=== PATIENT | male | born 1940 | race Caucasian/White ===

== ENCOUNTER 2025-03-09 08:27 | Day surgery (SDC) | payer MEDICARE, BC, SELFPAY ==
[2025-03-09] VITALS (23 sets, daily range): BP systolic 96–128; BP diastolic 54–75; PULSE 50–79; RESP 14–18; TEMP 35.6–36.9; O2SAT 91–98; BMI 27.8
[2025-03-09] MEDS: CELECOXIB 200 MG CAPSULE PO ×2 (09:00→20:43)
[2025-03-09] MEDS: ACETAMINOPHEN 500 MG TABLET 1000 MG PO ×3 (09:00→22:51)
[2025-03-09] MEDS: LACTATED RINGERS 1000 ML 1,000 ML 100 ML IV ×2 (09:15→11:40)
[2025-03-09] MEDS: SODIUM CHLORIDE 0.9 % (FLUSH) 10 ML SYRINGE IVF (09:15)
[2025-03-09] MEDS: fentaNYL 100 MCG/2 ML inj IVP (09:49)
[2025-03-09] MEDS: MIDAZOLAM HCL 1 MG/ML inj IVP (09:49)
--- NOTE | 2025-03-09 09:50 | SUR.PREOP ---
TIME?OUT:?48 PT/RN/MDA?VERIFICATION?OF?SURGICAL?SITE,?PROCEDURE,?AND?CONSENT OBTAINED?PRIOR?TO?INVASIVE?PROCEDURE.
--- NOTE | 2025-03-09 09:50 | SUR.OPER ---
PATIENT QUESTIONS ANSWERED SATISFACTORILY PREOPERATIVELY.? PATIENT BROUGHT TO OR #2 PER CART AFTER ADMINISTRATION OF A BLOCK.? Patient positioned supine on OR #2 bed.? The perioperative?team supported arms bilaterally on arm boards.? Final approval of positioning by surgeon.?
[2025-03-09] MEDS: CEFAZOLIN 1 GM inj IVP (10:16)
[2025-03-09] MEDS: TRANEXAMIC ACID 100 MG/ML INJ 1000 MG IV (10:17)
--- NOTE | 2025-03-09 11:29 | CRLHL7_ITS ---
For Patients: As a result of the Cures Act, medical imaging exams and procedure reports are released immediately into your electronic medical record. You may view this report before your referring provider. If you have questions, please contact your health care provider. Indication: Postop Technique: Two views left knee Findings/Impression: Hardware from a left total knee arthroplasty is in satisfactory position. Bone alignment is normal. No sign of acute fracture. Postop changes are within normal limits. Dictated by Michael Simpson MD @ 03/09/2025 3:39:05 PM (Electronically Signed)
--- NOTE | 2025-03-09 11:33 | P.ORPRC_ITS ---
Procedure Note Date of procedure: 03/09/25 Procedure: PREOPERATIVE DIAGNOSIS: Left knee osteoarthritis POSTOPERATIVE DIAGNOSIS: Left knee osteoarthritis NAME OF OPERATION: Left total knee arthroplasty SURGEON: Tremayne Kraft MD LINE ASSEMBLY UTILITY WORKER: Lesvia Corrigan PA-C ANESTHESIA: Spinal ESTIMATED BLOOD LOSS: 0 mL COMPLICATIONS: None SPECIMENS: None DRAINS: None PREOPERATIVE ANTIBIOTICS: Ancef 2 grams IMPLANTS: 1. J&J Attune # 7 posterior stabilized femur 2. #6 fixed-bearing tibia 3. # 7 posterior stabilized, 5 mm fixed-bearing polyethylene 4. 38 patella INDICATIONS: The patient is a 85-year-old with a longstanding history of severe, unrelenting left knee pain secondary to end-stage (grade IV) left knee osteoarthritis. Despite appropriate nonoperative management, including activity modification, anti-inflammatories, emwa-zyt-cxeeowo pain medication, bracing, physical therapy, and injections they continue to have pain and disability. Operative intervention was offered. The risks, benefits and expected outcomes were discussed in detail. These included but were not limited to: Infection, bleeding, injury to blood vessel or nerve, venous thromboembolism. All questions were answered to their satisfaction. Use of an animal care assistant was necessary throughout the case for patient positioning and safety, soft tissue retraction, and closure. PROCEDURE: Spinal anesthesia was administered. The patient was placed supine on the operating table. The animal care assistant made sure the patient was positioned appropriately. The lower extremity was prepped and draped in the usual sterile fashion. The limb was exsanguinated with the Paulo bandage. The pneumatic tourniquet was inflated to 300 mmHg. A standard anterior incision was made with the knee in flexion. Subcutaneous dissection was sharply taken through fascial layer #1. Full-thickness medial and lateral flaps were elevated. The animal care assistant retracted the soft tissues and protected them throughout the case. A standard subvastus approach was made. The patella was subluxed. The infrapatellar fat pad was debrided. The menisci and cruciate ligaments were sharply d?brided. Marginal osteophytes were d?brided with the rongeur. The drill was used to penetrate the femoral canal. The canal was aspirated and irrigated with pulse lavage. The intramedullary femoral guide was placed for a 5-degree valgus cut, removing 10 mm off the distal femur. The saw was used to make the cut. Whitesides line and the trans epicondylar axis were marked. The femoral sizing guide was pinned onto the distal femur. Three degrees of external rotation nicely parallels the transepicondylar axis. Pins were placed for posterior referencing. The four-in-one cutting guide was pinned onto the distal femur. The anterior, posterior, and chamfer cuts were made. The animal care assistant protected the collateral ligaments. The box cutting guide was pinned. The box cuts were made. The boxed trial was placed and was an excellent fit. Drill holes for the lugs were made. Attention was then turned to the proximal tibia. The extramedullary tibial guide was placed for a neutral varus/valgus cut with 5 degrees of posterior slope, removing 0 mm based off the medial tibial surface. The animal care assistant protected the collateral ligaments and the neurovascular bundle. The saw was used to make the cut. Trial components were placed. The knee was nicely balanced in both flexion and extension. The trial components were removed. The tray was placed in appropriate rotation, parallel to our tibial cutting pins. It was pinned by the animal care assistant and the drill and the punch were used. The tray was removed. The punch was used again. We placed a bone plug in the femoral canal. Attention was then turned to the patella. [place] patellar thickness was 24 mm. The lobster claw resection guide was used with the 9.5 mm regina. The saw was used to make the cut. Drill holes were made by the animal care assistant. The trial was placed and was an excellent fit. Cancellous surfaces were irrigated with pulse lavage and thoroughly dried by the animal care assistant. We cemented the tibial component, then the femoral component. We impacted the 5 mm polyethylene onto the tibial tray. The knee was brought into full extension. We then cemented the patellar component. Excessive cement was removed. The cement was allowed to harden. The knee was taken through a range of motion and was found to be nicely balanced in both flexion and extension. The patella tracks centrally. The animal care assistant did a three minute dilute Betadine solution soak. The animal care assistant irrigated the wound with 3 liters of normal saline via pulse lavage. The animal care assistant reapproximated the extensor mechanism with #1 Vicryl in an interrupted [id number] fashion. The animal care assistant then ran the extensor mechanism with a #1 PDO Stratafix. The animal care assistant closed the subcutaneous tissues with a 3-0 Stratafix and the skin with a running 3-0 Stratafix in a subcuticular fashion. Glue was used to seal the skin. The animal care assistant placed a dry dressing. Sponge and needle counts were correct x2. The patient tolerated the procedure well. There were no apparent complications. They were carefully transferred to the hospital bed and taken to the postanesthesia care unit in satisfactory condition. PLAN: The patient will be mobilized with physical therapy. Aspirin will be used for DVT prophylaxis. They will be discharged to home once medically appropriate.
--- NOTE | 2025-03-09 12:13 | W.PM.NB ---
Nerve Block Nerve Block Time Seen by Provider: 09:50 Date Seen: 03/09/25 Type of block requested by surgeon for post-operative analgesia: adductor canal Side: left Time out performed: Yes Verification of patient name: Yes Verification of date of : Yes Site marking: site marked Name of person performing procedure: Frederick Continuous monitoring Was continuous monitoring of O2 sat, B/P, bridge crew member, recorded every 15 minutes?: Yes Procedure Checklist: sterile prep, needles and gloves Ultrasound guided. Images saved: Yes Medications given in 5ml increments after negative aspiration: Marcaine %: 0.25 mL: 15 Needle gauge: 20 Precedex (mcg): 25 Patient tolerated procedure well: Yes Block Charges Block Charge (with Pro Fee): Femoral Nerve Use of Ultrasound Machine for Block: Yes- US Guidance/pain block
--- NOTE | 2025-03-09 12:14 | W.PM.NB ---
Nerve Block Nerve Block Time Seen by Provider: 09:50 Date Seen: 03/09/25 Type of block requested by surgeon for post-operative analgesia: geniculars Side: left Time out performed: Yes Verification of patient name: Yes Verification of date of : Yes Site marking: site marked Name of person performing procedure: Frederick Continuous monitoring Was continuous monitoring of O2 sat, B/P, engine monitor, recorded every 15 minutes?: Yes Procedure Checklist: sterile prep, needles and gloves Ultrasound guided. Images saved: Yes Medications given in 5ml increments after negative aspiration: Marcaine %: 0.25 mL: 9 Needle gauge: 25 Patient tolerated procedure well: Yes Block Charges Block Charge (with Pro Fee): Genicular Nerve Block
--- NOTE | 2025-03-09 12:15 | P.ANES_ITS ---
Anesthesia Charges Start Date/Time Anesthesia Start Date: 03/09/25 Anesthesia Start Time: 10:04 Stop Date/Time Anesthesia Stop Date: 03/09/25 Anesthesia Stop Time: 12:14 Summary Extremes of Age - Over 70 or under 1: MDA Coding CPT Codes CPT Codes: ANESTH KNEE ARTHROPLASTY - 65918 ([id number]) P3 - PATIENT W/SEVERE SYS DISEASE, QK - INFORMATION SECURITY ENGINEER 2-4 CNCRNT ANES PROC, QX - SENIOR ENVIRONMENTAL ENGINEER SVC W/ MD MED DIRECTION Additional Codes: Summary - Extremes of Age - Over 70 or under 1: MDA ([id number])
--- NOTE | 2025-03-09 12:15 | P.ANES_ITS ---
Anesthesia Charges Start Date/Time Anesthesia Start Date: 03/09/25 Anesthesia Start Time: 10:04 Stop Date/Time Anesthesia Stop Date: 03/09/25 Anesthesia Stop Time: 12:14 Summary Extremes of Age - Over 70 or under 1: CONSUMER BANKER Coding CPT Codes CPT Codes: ANESTH KNEE ARTHROPLASTY - 51028 ([id number]) QX - CONSUMER BANKER SVC W/ MD MED DIRECTION, QK - SENIOR FINANCIAL 2-4 CNCRNT ANES PROC, P2 - PATIENT W/MILD SYST DISEASE Additional Codes: Summary - Extremes of Age - Over 70 or under 1: CONSUMER BANKER ([id number])
--- NOTE | 2025-03-09 12:15 | W.ANESCHARGE ---
Anesthesia Charges Start Date/Time Anesthesia Start Date: 03/09/25 Anesthesia Start Time: 10:04 Stop Date/Time Anesthesia Stop Date: 03/09/25 Anesthesia Stop Time: 12:14 Summary Extremes of Age - Over 70 or under 1: SQUEEZER OPERATOR Coding CPT Codes CPT Codes: ANESTH KNEE ARTHROPLASTY - 99930 ([id number]) QX - SQUEEZER OPERATOR SVC W/ MD MED DIRECTION, QK - MARKET SUPERINTENDENT 2-4 CNCRNT ANES PROC, P2 - PATIENT W/MILD SYST DISEASE Additional Codes: Summary - Extremes of Age - Over 70 or under 1: SQUEEZER OPERATOR ([id number])
--- NOTE | 2025-03-09 12:15 | W.ANESCHARGE ---
Anesthesia Charges Start Date/Time Anesthesia Start Date: 03/09/25 Anesthesia Start Time: 10:04 Stop Date/Time Anesthesia Stop Date: 03/09/25 Anesthesia Stop Time: 12:14 Summary Extremes of Age - Over 70 or under 1: MDA Coding CPT Codes CPT Codes: ANESTH KNEE ARTHROPLASTY - 37694 ([id number]) P3 - PATIENT W/SEVERE SYS DISEASE, QK - INDUSTRIAL MANUFACTURING TECHNICIAN 2-4 CNCRNT ANES PROC, QX - CASH PROCESSOR SVC W/ MD MED DIRECTION Additional Codes: Summary - Extremes of Age - Over 70 or under 1: MDA ([id number])
[2025-03-09] MEDS: HYDROmorphone 0.5 mg/0.5 ml inj IVP ×3 (15:38→22:51)
[2025-03-09] MEDS: CEFAZOLIN 2 GM in 0.9 % SODIUM CHLORIDE Mini-bag 100 ML IVPB ×2 (15:38→22:52)
--- NOTE | 2025-03-09 15:41 | PM.IMCN1 ---
Date of Consult Patient: Other Consult date: 03/09/25 Primary Care Provider: Yobani Murray PA-C Consult Narrative Reason for consult: Medical management of comorbidities Narrative: Sekou Tobias is a 85 year old male who presented to the hospital today for an elective L TKA with Dr. Kraft of Orthopedic Surgery. There were no surgical or anesthetic complications noted during procedure. Patient's H&P reviewed, PCP is Yobani Murray at [facility]. Past medical history significant for: Moderate persistent asthma, essential hypertension, BPH, remote history of right lung lobectomy, melanoma. History of blood clots: No Postoperative plan: Home with Patient is comfortable in bed without concerns for hospitalist team this afternoon. Review of Systems Status of ROS: Reports: 10 or more systems reviewed and unremarkable except as noted in History and below [facility] Medical History (Updated 03/09/25 @ 15:48 by Sandrine Hawley MD) Asthma ?J45.909 - Unspecified asthma, uncomplicated (ICD-10) High cholesterol ?E78.00 - Pure hypercholesterolemia, unspecified (ICD-10) Hypertension ?I10 - Essential (primary) hypertension (ICD-10) Coronary artery disease ?I25.10 - Atherosclerotic heart disease of [place] coronary artery without angina pectoris (ICD-10) H/O left bundle branch block ?Z86.79 - Personal history of other diseases of the circulatory system (ICD-10) Melanoma ?C43.9 - Malignant melanoma of skin, unspecified (ICD-10) Skin cancer ?C44.90 - Unspecified malignant neoplasm of skin, unspecified (ICD-10) COPD (chronic obstructive pulmonary disease) ?J44.9 - Chronic obstructive pulmonary disease, unspecified (ICD-10) Surgical History (Updated 03/09/25 @ 15:48 by Sandrine Hawley MD) Status post left knee replacement ?Z96.652 - Presence of left artificial knee joint (ICD-10) H/O total ankle replacement ?Z96.669 - Presence of unspecified artificial ankle joint (ICD-10) Hx of cataract surgery ?Z98.49 - Cataract extraction status, unspecified eye (ICD-10) S/P thoracotomy ?Z98.890 - Other specified postprocedural states (ICD-10) H/O hernia repair ?Z98.890 - Other specified postprocedural states (ICD-10) ?Z87.19 - Personal history of other diseases of the digestive system (ICD-10) Family History Other Colon cancer Lung cancer Stroke Social History (Updated 11/02/24 @ 13:03 by Judy Collins ~ [facility], [facility]) Narrative: -Charis former smoker (1963) What is your current living situation?: I presently have a place to live Problems where you live: no known problems In the past 12 months, utilities in danger of being shut off: no In past 12 months, lack of transportation kept you from medical appts, meetings, work, or getting things needed for daily living: no In the past 12 mos, have been you worried that your food would run out before you had money to buy more?: never true In the past 12 mos, the food you bought just didn't last and you didn't have money to buy more?: never true Highest level of school completed/degree received: high school graduate Smoking Status: Never smoker Do you use any of these nicotine containing products: None Second hand tobacco smoke exposure: No How often do you have a drink containing alcohol: 2-4 times a month Alcohol type: beer How many standard drinks containing alcohol do you have on a typical day: 1 or 2 How often do you have six or more drinks on one occasion: Never AUDIT-C Alcohol total score: 2 Non-prescribed substance use: denies use Caffeine: Yes How often does anyone, including family, friends and others, physically hurt you: never How often does anyone, including family, friends and others, insult or talk down to you: never How often does anyone, including family, friends and others, threaten you with harm: never How often does anyone, including family, friends and others, scream or curse at you: never service: Yes Meds Home Medications and Allergies Home Medications ?Medication ?Instructions ?Recorded ?Confirmed ?Type albuterol sulfate 90 mcg/actuation 2 puff inhalation Q4H PRN 02/20/23 03/09/25 History aerosol inhaler allopurinol 300 mg tablet 300 mg PO DAILY 02/20/23 03/09/25 History aspirin 81 mg tablet,delayed 81 mg PO DAILY 02/20/23 03/09/25 History release Held on 03/09/25. Instructions: Resume on 04/09/25. cetirizine 10 mg capsule (Zyrtec) 10 mg PO DAILY PRN 02/20/23 03/09/25 History cholecalciferol (vitamin D3) 10 10 mcg PO DAILY 02/20/23 03/09/25 History mcg (400 unit) capsule diltiazem HCl 240 mg 240 mg PO QAM 02/20/23 03/09/25 History capsule,extended release 24 hr fluticasone propionate 250 1 inh inhalation BID 02/20/23 03/09/25 History mcg/actuation blister powder for inhalation furosemide 20 mg tablet 20 mg PO DAILY 02/20/23 03/09/25 History simvastatin 10 mg tablet 10 mg PO HS 02/20/23 03/09/25 History tamsulosin 0.4 mg capsule 0.4 mg PO DAILY 02/20/23 03/09/25 History tiotropium bromide 1.25 2 puff inhalation QAM 02/20/23 03/09/25 History mcg/actuation mist for inhalation (Spiriva Respimat) losartan 50 mg tablet 100 mg PO DAILY 03/02/25 03/09/25 History acetaminophen 500 mg capsule 500 - 1,000 mg (1 - 2 x 500 mg) PO 03/09/25 Rx Q6H PRN pain #100 caps aspirin 81 mg chewable tablet 81 mg PO BID for DVT prophylaxis 03/09/25 Rx (Aspirin Childrens) 30 days #60 tabs budesonide-formoterol HFA 160 2 inh inhalation BID 03/09/25 03/09/25 History mcg-4.5 mcg/actuation aerosol inhaler (Breyna) chlorthalidone 25 mg tablet 12.5 mg PO DAILY 03/09/25 03/09/25 History hydromorphone 2 mg tablet 2 mg PO Q6H PRN pain #28 tabs 03/09/25 Rx sennosides 8.6 mg tablet (Senna 17.2 mg (2 x 8.6 mg) PO BID PRN 03/09/25 Rx Lax) constipation #100 tabs Allergies Allergy/AdvReac Type Severity Reaction Status Date / Time hydrochlorothiazide AdvReac Cough Verified 03/09/25 09:31 lisinopril AdvReac Cough Verified 03/09/25 09:31 oxycodone AdvReac sweating, Verified 03/09/25 09:31 disorientation Exam Narrative: Exam Narrative: GEN: Alert and oriented, resting comfortably in bed HEENT: EOMIs bilaterally, no scleral icterus CV: RRR, No concerning murmurs, rubs, or gallops R: LCTA bilaterally without concerning wheezing, rales, or rhonchi Skin: No concerning skin lesions or rashes on exposed skin Neuro: No focal deficits, no resting tremor Psych: Appropriate Const: Vital Signs, click to edit/add: Vital Signs - 24 hr 03/09/25 09:15 03/09/25 09:49 03/09/25 09:55 Temperature 98.5 F Pulse Rate 72 77 66 Respiratory Rate 16 16 16 Blood Pressure 124/71 128/73 111/64 Pulse Oximetry 96 97 97 Oxygen Delivery Me thod Room Air Nasal Cannula Nasal Cannula Oxygen Flow Rate 2 2 03/09/25 10:00 03/09/25 12:09 03/09/25 12:15 Temperature 97.5 F L Pulse Rate 68 59 L 56 L Respiratory Rate 16 16 14 Blood Pressure 113/63 104/54 L 99/55 L Pulse Oximetry 97 92 93 Oxygen Delivery Me thod Nasal Cannula Room Air Oxygen Flow Rate 2 03/09/25 12:20 03/09/25 12:25 03/09/25 12:30 Temperature Pulse Rate 55 L 54 L 51 L Respiratory Rate 16 16 18 Blood Pressure 96/54 L 100/56 L 104/56 L Pulse Oximetry 92 91 92 Oxygen Delivery Me thod Oxygen Flow Rate 03/09/25 12:35 03/09/25 12:40 Temperature 96.9 F L Pulse Rate 52 L 53 L Respiratory Rate 16 14 Blood Pressure 100/59 L 106/54 L Pulse Oximetry 94 92 Oxygen Delivery Me thod Oxygen Flow Rate Assessment and Plan Assessment and plan (1) Status post left knee replacement: Problem comment: - 03/09/25Abena Status: Acute (2) Asthma: Problem comment: - moderate persistent asthma Status: Acute Plan - pain management and prophylaxis per orthopedic surgery team - continue home medications for comorbidities - anticipate routine postoperative course
[2025-03-09] MEDS: HYDROmorphone 2 MG TABLET PO (18:49)
--- NOTE | 2025-03-09 19:20 | PC.NURSE ---
End of Shift: patient pleasant and cooperative, A&O. VSS, afebrile. SpO2 maintained above 90% on RA. Dressing to left knee C/D/I. Patient reports pain on his left knee this shift, managed with PRN medication, see MAR. Denies nausea this shift. 1A with walker and gait belt.
[2025-03-09] MEDS: SENNOSIDES 1 TAB TABLET 2 TAB PO (20:43)
[2025-03-09] MEDS: ASPIRIN 81 MG TABLET EC PO (20:43)
[2025-03-09] MEDS: ONDANSETRON 2 MG/ML inj 4 MG IVP (20:44)
[2025-03-10] MEDS: HYDROmorphone 0.5 mg/0.5 ml inj IVP ×3 (01:13→05:04)
[2025-03-10] MEDS: ACETAMINOPHEN 500 MG TABLET 1000 MG PO (02:59)
[2025-03-10 03:00] VITALS: BP 124/75; PULSE 74; TEMP 36.4; O2SAT 95
--- NOTE | 2025-03-10 06:36 | PC.NURSE ---
End of shift report [id number]: Pleasant and cooperative with cares. Pain to left knee well managed with current regimen. Left knee CMS intact, non pitting edema noted. Dressing is clean, dry and intact. Tolerating ice pack to op site. Transfers and ambulates with SBA with walker and gait belt. Nausea reported at start of shift, prn zofran administered and effective. Saline locked at 2345 due to fluid intake adequate and voiding without difficulty.
[2025-03-10 06:48] LABS: Basophils Percent Auto 0.1 % (0.0-3.0); Hematocrit 33.2 % (37.0-53.0); Hemoglobin* 11.1 gm/dL (13.5-17.5); Immature Granulocytes Pct Auto 0.3 %; Lymphocytes Percent Auto 3.5 % (20-44); Mean Corpuscular HGB Conc 33 gm/dL (32-36); Mean Corpuscular Hemoglobin 32 pg (26-34); Mean Corpuscular Volume 94 fL (80-100); Monocytes Percent Auto 5.6 % (0.0-11.0); Neutrophils Percent Auto 90.5 % (42.0-72.0); Platelet Count* 252 K/uL (140-440); RDW Coefficient of Variation % 13.9 % (11.5-15.5); Red Blood Count 3.52 m/uL (4.30-5.90); White Blood Count* 15.58 K/uL (4.50-11.00)
[2025-03-10 06:49] LABS: Slide Review Reflex No
[2025-03-10 06:52] LABS: Chloride* 105 mmol/L (96-114); Potassium* 4.4 mmol/L (3.6-5.1); Sodium* 135 mmol/L (135-149)
[2025-03-10 06:55] LABS: Blood Urea Nitrogen* 36 mg/dL (7-30); Creatinine* 1.5 mg/dL (0.5-1.5); Est. Creatinine Clearance* 37.18; Estimated Glomerular Filt Rate 45 ml/min
[2025-03-10 06:56] LABS: Anion Gap 8 mEq/L (7-15); Calcium* 8.6 mg/dL (8.4-10.6); Carbon Dioxide* 22 mmol/L (20-32); Glucose* 134 mg/dL (60-115)
[2025-03-10 07:00] VITALS: PULSE 74; RESP 18; O2SAT 97
[2025-03-10 07:30] VITALS: BP 132/70; PULSE 74; RESP 18; TEMP 36.4; O2SAT 97
[2025-03-10] MEDS: CEFAZOLIN 2 GM in 0.9 % SODIUM CHLORIDE Mini-bag 100 ML IVPB (07:52)
--- NOTE | 2025-03-10 08:26 | PM.ORPN ---
Subjective Subjective Time Seen by Provider: 08:26 Date Seen: 03/10/25 Principal diagnosis: Status post left knee replacement Interval history: Nash is comfortable this morning. He will discharge to home today. Ortho Exam Narrative Exam Narrative: Alert and oriented x3. Patient is in no acute distress. Converses without labored breathing. Hearing is grossly intact. Ambulates with a walker. Examination of the left knee shows the dressing is intact. No erythema or warmth or sign of infection. CMS intact left lower extremity. Calf is soft and nontender. He is able to straight leg raise. Const Vital Signs, click to edit/add: Vital Signs - 24 hr 03/09/25 09:15 03/09/25 09:49 03/09/25 09:55 Temperature 98.5 F Pulse Rate 72 77 66 Pulse Rate [Left Pulse Oximeter] Respiratory Rate 16 16 16 Blood Pressure 124/71 128/73 111/64 Blood Pressure [Right Arm] Pulse Oximetry 96 97 97 Oxygen Delivery Method Room Air Nasal Cannula Nasal Cannula Oxygen Flow Rate 2 2 03/09/25 10:00 03/09/25 12:09 03/09/25 12:15 Temperature 97.5 F L Pulse Rate 68 59 L 56 L Pulse Rate [Left Pulse Oximeter] Respiratory Rate 16 16 14 Blood Pressure 113/63 104/54 L 99/55 L Blood Pressure [Right Arm] Pulse Oximetry 97 92 93 Oxygen Delivery Method Nasal Cannula Room Air Oxygen Flow Rate 2 03/09/25 12:20 03/09/25 12:25 03/09/25 12:30 Temperature Pulse Rate 55 L 54 L 51 L Pulse Rate [Left Pulse Oximeter] Respiratory Rate 16 16 18 Blood Pressure 96/54 L 100/56 L 104/56 L Blood Pressure [Right Arm] Pulse Oximetry 92 91 92 Oxygen Delivery Method Oxygen Flow Rate 03/09/25 12:35 03/09/25 12:40 03/09/25 12:48 Temperature 96.9 F L 96.2 F L Pulse Rate 52 L 53 L 53 L Pulse Rate [Left Pulse Oximeter] Respiratory Rate 16 14 14 Blood Pressure 100/59 L 106/54 L 110/58 L Blood Pressure [Right Arm] Pulse Oximetry 94 92 93 Oxygen Delivery Method Room Air Oxygen Flow Rate 03/09/25 12:48 03/09/25 13:00 03/09/25 13:15 Temperature 96.2 F L 96.0 F L 96.0 F L Pulse Rate 53 L 52 L 50 L Pulse Rate [Left Pulse Oximeter] Respiratory Rate 14 14 14 Blood Pressure 110/58 L 107/54 L 100/56 L Blood Pressure [Right Arm] Pulse Oximetry 93 95 94 Oxygen Delivery Method Room Air Room Air Room Air Oxygen Flow Rate 03/09/25 13:30 03/09/25 13:45 03/09/25 14:15 Temperature 96.2 F L 96.2 F L Pulse Rate 53 L 54 L 62 Pulse Rate [Left Pulse Oximeter] Respiratory Rate 14 14 Blood Pressure 111/62 123/61 117/65 Blood Pressure [Right Arm] Pulse Oximetry 95 95 Oxygen Delivery Method Room Air Room Air Oxygen Flow Rate 03/09/25 14:45 03/09/25 15:00 03/09/25 16:00 Temperature Pulse Rate 64 Pulse Rate [Left Pulse Oximeter] Respiratory Rate Blood Pressure 112/58 L 114/70 Blood Pressure [Right Arm] Pulse Oximetry 95 Oxygen Delivery Method Room Air Oxygen Flow Rate 03/09/25 17:00 03/09/25 19:00 03/09/25 23:00 Temperature 96.6 F L 97.6 F Pulse Rate 75 Pulse Rate [Left Pulse Oximeter] 73 Respiratory Rate 16 16 17 Blood Pressure 111/75 Blood Pressure [Right Arm] 126/65 Pulse Oximetry 95 97 98 Oxygen Delivery Method Room Air Room Air Room Air Oxygen Flow Rate 03/09/25 23:00 03/10/25 03:00 Temperature 97.0 F L 97.5 F L Pulse Rate Pulse Rate [Left Pulse Oximeter] 79 74 Respiratory Rate 17 Blood Pressure Blood Pressure [Right Arm] 126/65 124/75 Pulse Oximetry 98 95 Oxygen Delivery Method Room Air Room Air Oxygen Flow Rate Assessment and Plan Assessment and plan (1) Status post left knee replacement: Problem details: Left total knee arthroplasty (03/09/2025, Dr. Kraft) Status: Acute Assessment and Plan: Plan for discharge is today to home if they meet discharge criteria. DVT prophylaxis includes aspirin 81 mg twice daily x1 month, Compression stockings as needed for swelling. Frequent ambulation, every hour throughout the day. Remove dressing in 1 week. Observe wound and phone Orthopedics with any questions or concerns Return to clinic in 1 week for a wound check Return to clinic in 6 weeks with surgeon Minimize narcotic use. Wean off and discontinue soon as possible. Activities as tolerated. No strenuous activity. Outpatient physical therapy as scheduled. Ice and elevate the operative extremity. No restriction on ice.
[2025-03-10] MEDS: ASPIRIN 81 MG TABLET EC PO (08:59)
[2025-03-10] MEDS: LOSARTAN POTASSIUM 50 MG TABLET 100 MG PO (08:59)
[2025-03-10] MEDS: SENNOSIDES 1 TAB TABLET 2 TAB PO (08:59)
[2025-03-10] MEDS: CELECOXIB 200 MG CAPSULE PO (08:59)
[2025-03-10] MEDS: allopurinoL 300 MG TABLET PO (08:59)
[2025-03-10] MEDS: HYDROmorphone 2 MG TABLET PO (09:00)
--- NOTE | 2025-03-10 12:57 | PC.NURSE ---
Discharge: Patient pleasant and cooperative, A&O. VSS, afebrile. SpO2 maintained above 90% on RA. Patient reports pain in his knee, managed with PRN medication, see MAR. Tolerating regular diet. IV removed with tip intact. Discharge instructions provided, all questions answered. D/C to home
--- NOTE | 2025-03-10 15:21 | PC.SOCIAL ---
Pt. is moving well and discharged home with spouse support today. No public health social worker or additional resources needed.
== END 2025-03-10 11:09 | disposition home or self-care (01) ==
LOC: OR 08:31 → MEDSURG 09:28
PROVIDERS: Family Medicine; PCP Physician Assistant; Visit Provider Orthopaedic Surgery
PROC: (CPT 27447; principal; 2025-03-09 10:45)
DX: M17.12 Unilateral primary osteoarthritis, left knee (principal); G89.18 Other acute postprocedural pain; I10 Essential (primary) hypertension; J45.40 Moderate persistent asthma, uncomplicated; N40.0 Benign prostatic hyperplasia without lower urinary tract symptoms; I25.10 Atherosclerotic heart disease of native coronary artery without angina pectoris; E78.00 Pure hypercholesterolemia, unspecified; J44.9 Chronic obstructive pulmonary disease, unspecified; Z79.82 Long term (current) use of aspirin; Z85.820 Personal history of malignant melanoma of skin; Z85.828 Personal history of other malignant neoplasm of skin
CPT/HCPCS: 27447; 01402; 36415; 64447; 64454; 73560; 76942; 80048; 85025; 97110; 97116; 97161; 97165; 97530; 97535; 99100; A9270; C1776; J0665; J0690; J1100; J1171; J2250; J2405; J2704; J3010; J7120